=== PATIENT | male | born 1985 | race Caucasian/White ===

== ENCOUNTER 2017-06-30 14:43 | Emergency (ER) | payer OTHER ==
[~2017-06-30] VITALS: Ht 170.2 cm; Wt 77.1 kg
[2017-06-30] MEDS ORDERED: TETANUS,DIPTH,PERTUSS P/F (BOOSTRIX) 0.5 ML VIAL IM ONE (15:00)
--- NOTE | 2017-06-30 15:07 | ED Integumentary General ---
General Stated Complaint: FALL THRU ICE Source: patient Exam Limitations: no limitations History of Present Illness Date Seen by Provider: Jun 30, 2017 Time Seen by Provider: 15:01 Initial Comments This 32 year-old white male presents after he inadvertently fell through the ice. The patient sustained an inversion injury to his toes. He has sustained an abrasion to his right anterior chest. The patient may have aspirated water from the immersion. Patient denies other intravenous accident. The patient denies shortness of breath or coughing. There was no loss of consciousness. He denies recreational drugs or alcohol. He does not recall when his last tetanus immunization occurred. Allergies and Home Medications Allergies Coded Allergies: No Known Drug Allergies (Unverified , 06/30/17) Constitutional: no symptoms reported EENTM: No ear pain Respiratory: No cough, other (possible aspiration of [place].) Cardiovascular: No chest pain Gastrointestinal: No abdominal pain, No diarrhea, No vomiting Genitourinary: no symptoms reported Musculoskeletal: no symptoms reported Skin: no symptoms reported, other (abrasions to the right chest wall) Psychiatric/Neurological: No Symptoms Reported Endocrine: No Symptoms Reported Hematologic/Lymphatic: No Symptoms Reported Past [id number] Hx Reviewed Nursing Assessment Reviewed/Agree w Nursing PMH: Yes Physical Exam Vital Signs Capillary Refill : General Appearance: WD/WN, mild distress HEENT: normal ENT inspection Neck: non-tender, supple Cardiovascular: regular rate, rhythm, no murmur Respiratory: lungs clear Gastrointestinal: normal bowel sounds, soft Back: normal inspection, no CVA tenderness Extremities: other (patient's toes were white and cold to the touch. The patient's toes returned to a normal pink color after immersion in warm water.) Neurologic/Psychiatric: no motor/sensory deficits, alert, normal mood/affect Skin: pallor (to the toes of both feet) Progress/Results/Core Measures Results/Orders My Orders Orders - PATRICE WASHINGTON MD Dipht,Cash(Sylvia),Tet Adult (Boostrix (06/30/17 15:00) Chest Pa/Lat (2 View) (06/30/17 14:58) Progress Note : Time: 15:04 Progress Note Due to the possible aspiration [place] a baseline chest x-ray was obtained. The patient's toes which had been cold and white upon presentation returned quickly to a normal pink color and temperature. There was no evidence of decreased sensation to the digits following rewarming. Departure Impression Impression: Primary Impression: EXPOSURE TO EXCESSIVE NATURAL COLD, INITIAL ENCOUNTER Disposition: 01 HOME, SELF-CARE Condition: Improved Departure-Patient Inst. Decision time for Depature: 15:06 [facility]: [facility] [place] Instructions: Hypothermia Add. Discharge Instructions: Avoid further exposure to the cold. Return if any problems or questions. Close follow-up with caregiver of choice tomorrow. PATRICE WASHINGTON MD Jun 30, 2017 15:07
--- NOTE | 2017-06-30 15:31 | Diagnostic Imaging Report ---
INDICATION: Fall with chest tightness. EXAMINATION: PA and lateral views of the chest were obtained. FINDINGS: The heart size, mediastinal configuration, and pulmonary vascularity are within normal limits. There is no pleural effusion, pneumothorax or pneumonia. The osseous structures are unremarkable. IMPRESSION: No acute cardiopulmonary abnormality. Dictated by: Dictated on workstation # [id number]
[2017-06-30 16:05] VITALS: BP 127/69
== END 2017-06-30 16:05 | disposition home or self-care (01) ==
LOC: ER 14:47
DX: S20.311A Abrasion of right front wall of thorax, initial encounter (principal); X31.XXXA Exposure to excessive natural cold, initial encounter
CPT/HCPCS: 71046; 90471; 90715; 99284